=== PATIENT | male | born 1990 | race Caucasian/White ===

== ENCOUNTER → 2023-10-18 08:13 | Outpatient (CLI) | payer OTHER, SELFPAY ==
--- NOTE | 2023-10-18 | DI.US.S_ITS ---
PROCEDURE: US ABDOMEN LIMITED INDICATIONS: LOWER ABDOMINAL PAIN / POSSIBLE BILATERAL HERNIA TECHNIQUE: Real-time focused scanning was performed of the abdomen, with image documentation. COMPARISON: None. Findings and impression: In the area of concern in the bilateral groins, no discrete fluid collection, mass, or hernia is identified. Clinical followup is recommended. If there is new or worsening clinical concern, reimaging could be obtained. Dictated by: Jasiel Kern M.D. on 10/18/2023 at 9:07 Approved by: Jasiel Kern M.D. on 10/18/2023 at 9:08
== END ==
LOC: US 08:15
DX: R10.30 Lower abdominal pain, unspecified (principal)
CPT/HCPCS: 76705

== ENCOUNTER 2024-02-12 12:46 | Day surgery (SDC) | payer OTHER, SELFPAY ==
[2024-02-12 13:49] VITALS: BP 133/85; PULSE 87; RESP 16; TEMP 36.6; O2SAT 95
[2024-02-12] MEDS: LACTATED RINGERS 1,000 ML 42 ML IV (13:54)
--- NOTE | 2024-02-12 14:00 | PM.HP.1 ---
History of Present Illness History of Present Illness Chief complaint: Colonoscopy Narrative: Abdominal pain and rectal bleeding PFSH Social History Smoking Status: Never smoker Meds Home Medications and Allergies Home Medications Medication Instructions Recorded Confirmed Type dicyclomine 20 mg tablet 20 mg PO QD-QID PRN cramps 02/12/24 02/12/24 History tamsulosin 0.4 mg capsule 0.4 mg PO DAILY PRN urinary 02/12/24 02/12/24 History frequency Allergies Allergy/AdvReac Type Severity Reaction Status Date / Time adhesive AdvReac Rash Verified 02/12/24 13:39 Exam Vital Signs (past 8 hours): - 02/12/24 13:49 Temperature 97.8 F Pulse Rate 87 Respiratory Rate 16 Blood Pressure 133/85 Pulse Oximetry 95 Oxygen Delivery Method Room Air Oxygen Flow Rate 0 Oxygen Delivery Method Room Air Oxygen Flow Rate 0 Narrative Exam Narrative: Oropharynx free of lesions Chest clear to auscultation percussion Cardiac exam reveals no S3 or murmur Assessment & Plan Assessment & Plan narrative: Abdominal pain rectal bleeding need for colonoscopy. Risks, benefits, alternatives have been explained. Time-Based Coding :: [TOTAL MINUTES] spent with patient and on the chart (including review of chart, obtaining history, exam, reviewing outside data, placing orders, documenting exam and treatment plan, and counseling patient) on [DATE].
--- NOTE | 2024-02-12 14:01 | PM.OP.COLON ---
Operative Date/Time/Diagnoses Date of procedure: 02/12/24 Pre-op diagnosis: See indication and findings Procedure & Clinicians Study performed: Colonoscopy Indications: Rectal bleeding and abdominal discomfort Surgeon: Juan Martinez Procedure Notes Procedure in detail: After informed consent was obtained the patient was placed in left lateral decubitus position. The video colonoscope was introduced the rectum slowly advanced cecum. Preparation was good. On slow withdrawal mucosa was carefully examined. The scope was removed. The patient tolerated procedure well. Blood loss none Complications none Sedation mac Findings 1. Normal colonoscopy to cecum 2. Mild to moderate internal hemorrhoids Patient should have follow-up colonoscopy in 10 years.
[2024-02-12 14:54] VITALS: BP 114/64; PULSE 99; RESP 10; TEMP 36.5; O2SAT 95
[2024-02-12 14:59] VITALS: BP 120/74; PULSE 92; RESP 13; O2SAT 95
[2024-02-12 15:04] VITALS: BP 126/82; PULSE 91; RESP 12; TEMP 36.9; O2SAT 96
== END 2024-02-12 15:14 | disposition home or self-care (01) ==
PROVIDERS: PCP Physician Assistant; Referring Provider Internal Medicine Gastroenterology; Visit Provider Internal Medicine Gastroenterology
PROC: 0DJD8ZZ Inspection of Lower Intestinal Tract, Via Natural or Artificial Opening Endoscopic (ICD-10-PCS; CPT 45378; principal; 2024-02-12 14:00)
DX: K62.5 Hemorrhage of anus and rectum (principal); K64.8 Other hemorrhoids
CPT/HCPCS: 45378; J2704

== ENCOUNTER 2024-08-05 07:55 | Day surgery (SDC) | payer OTHER, SELFPAY ==
--- NOTE | 2024-08-05 | PATH_ITS ---
[facility] Accession Number: [id number] No. of containers..02 Tissue . 01 Material submitted: . PART A: stomach - STOMACH PART B: stomach - CERVICAL OXYMEIC MUCOSA . 01 Diagnosis: A. STOMACH, BIOPSY: Oxyntic mucosa with focal mild chronic inflammtion. Negative for Helicobacter organisms and intestinal metaplasia. . B. CERVICAL OXYMEIC MUCOSA, BIOPSY: Squaocolummnar junctional mucosa with mild reflux changes. Negative for intestinal metaplasia and intraepithelial eosinophils. MRV 08/11/2024 1529 Local . 01 Comment: Immunohistochemistry for Helicobacter pylori is performed on block A1 and is negative. . Technical Note: The immunohistochemical stains reported were performed with appropriate controls at [facility] ([facility] [address], [facility] [address]). This test was developed, and the performance characteristics were validated by [facility]. It has not been cleared or approved by the Food and Drug Administration. . 01 Electronically signed: . Mary Arteaga DO, Pathologist NPI- [id number] . 01 Gross description: . A. Received in formalin with two patient identifiers and stomach, are three arguelles soft tissue fragments, 0.3-0.4 cm in greatest dimension, submitted in A1. B. Received in formalin with two patient identifiers and cervical oxymeic mucosa, is a single arguelles soft tissue fragment, 0.4 cm in greatest dimension, submitted in B1. ([id number]) /MRV 08/06/2024 1333 Local . 01 Pathologist provided ICD-10: K29.70 . 01 CPT . 816936, [id number], [id number] Specimen Comment: A courtesy copy of this report has been sent to [phone] Performed at: [address] [address], [place], [place] [id number] MD Michael Yun MD Phone: [phone]
[2024-08-05 08:23] VITALS: BP 128/83; PULSE 87; RESP 16; TEMP 36.3; O2SAT 96
[2024-08-05] MEDS: LACTATED RINGERS 1,000 ML 42 ML IV (08:33)
--- NOTE | 2024-08-05 08:33 | PM.OP.EGD ---
Operative Date/Time/Diagnoses Date of procedure: 08/05/24 Pre-op diagnosis: See indication findings Procedure & Clinicians Study performed: EGD Same procedure as scheduled: Yes Indications: epigastric and left upper quadrant pain. Mild substernal dysphagia. Surgeon: Juan Martinez Procedure Notes Procedure in detail: After informed consent was obtained the patient was placed in left lateral decubitus position. The video upper scope was placed into the oropharynx and with the patient's help swelled into the esophagus. The esophagus stomach and duodenal were carefully examined. On withdrawal, retroflexed view the GE junction was performed. The scope was removed. The patient tolerated procedure well. Blood loss none Complications none Sedation mac Findings 1. Cervical inlet patch just under the upper esophageal sphincter. One aspect seemed to have some irregularity and possibly even mild inflammation /erosion. Two biopsies taken 2. Normal distal esophagus with normal squamocolumnar junction but with fairly wide-open lower esophageal sphincter 3. Patchy erythema in the stomach biopsies taken to rule out Helicobacter 4. Normal duodenal bulb and sweep Will merely await findings and discuss appropriate follow-up.
--- NOTE | 2024-08-05 08:34 | PM.HP.1 ---
History of Present Illness History of Present Illness Date Patient Seen: 08/05/24 Chief complaint: EGD Narrative: Dyspepsia and mild substernal dysphagia PFSH Social History Smoking Status: Never smoker alcohol intake: current Meds Home Medications and Allergies Home Medications Medication Instructions Recorded Confirmed Type amlodipine 10 mg tablet 10 mg PO DAILY 08/05/24 08/05/24 History duloxetine 60 mg capsule,delayed 60 mg PO DAILY 08/05/24 History release sildenafil 50 mg tablet 50 mg 08/05/24 History Allergies Allergy/AdvReac Type Severity Reaction Status Date / Time adhesive AdvReac Rash Verified 08/05/24 08:15 Exam Vital Signs (past 8 hours): - 08/05/24 08:23 Temperature 97.3 F L Pulse Rate 87 Respiratory Rate 16 Blood Pressure 128/83 Pulse Oximetry 96 Oxygen Delivery Method Room Air Oxygen Delivery Method Room Air Narrative Exam Narrative: oropharynx free of lesions Chest clear to auscultation percussion Cardiac exam reveals no S3 or murmur. Assessment & Plan Assessment & Plan narrative: Dyspepsia and occasional substernal dysphagia. EGD to be performed to rule out consequences of GERD. Risks, benefits, alternatives have been explained. Time-Based Coding :: [TOTAL MINUTES] spent with patient and on the chart (including review of chart, obtaining history, exam, reviewing outside data, placing orders, documenting exam and treatment plan, and counseling patient) on [DATE].
[2024-08-05 09:23] VITALS: BP 144/63; PULSE 96; RESP 16; TEMP 36.4; O2SAT 97
[2024-08-05 09:25] VITALS: BP 130/70; PULSE 95; RESP 16; O2SAT 95
[2024-08-05 09:28] VITALS: BP 125/83; PULSE 82; RESP 14; O2SAT 96
[2024-08-05 09:33] VITALS: BP 126/84; PULSE 84; RESP 12; O2SAT 95
== END 2024-08-05 09:46 | disposition home or self-care (01) ==
PROVIDERS: Referring Provider Internal Medicine Gastroenterology; Visit Provider Internal Medicine Gastroenterology
PROC: 0DJ08ZZ Inspection of Upper Intestinal Tract, Via Natural or Artificial Opening Endoscopic (ICD-10-PCS; CPT 43239; principal; 2024-08-05 09:00)
DX: R10.13 Epigastric pain (principal); R10.12 Left upper quadrant pain; R13.19 Other dysphagia; K29.50 Unspecified chronic gastritis without bleeding
CPT/HCPCS: 43239; J2704